=== PATIENT | male | born 1965 | race Caucasian/White ===

== ENCOUNTER 2022-05-16 00:36 | Emergency (ER) | payer OTHER ==
[2022-05-16] MEDS ORDERED: Proparacaine 0.5% Ophth Soln 15 ML Bottle EYEBOTH STA (00:56)
[2022-05-16] MEDS ORDERED: Diphtheria,Pertussis(Acell),Tetanus Vaccine 0.5 ML Syringe IM ONE (01:28)
== END 2022-05-16 02:16 | disposition home or self-care (01) ==
LOC: JP.ED 00:36
DX: T15.91XA Foreign body on external eye, part unspecified, right eye, initial encounter (principal); T15.92XA Foreign body on external eye, part unspecified, left eye, initial encounter; Z86.16 Personal history of COVID-19; Z23 Encounter for immunization
CPT/HCPCS: 90471; 90715; 99283; A9270